=== PATIENT | female | born 1955 | race Caucasian/White ===

== ENCOUNTER 2024-08-02 08:10 | Day surgery (SDC) | payer MEDICARE, OTHER ==
[~2024-08-02] VITALS: Ht 162.6 cm; Wt 64.5 kg
[~2024-08-02 08:10] MED LIST: AMLO5TAB66 PO; CALC-462 PO; SODIUM CHLORIDE 0.9% 1,000 ML ONE
[2024-08-02] MEDS: SODIUM CHLORIDE 0.9% 1,000 ML IV ONE (08:56)
[2024-08-02] MEDS ORDERED: OXYGEN THERAPY IH SCH ×2 (09:30→20:00)
[2024-08-02] MEDS ORDERED: LIDOCAINE/PF 2% 5 ML SYRINGE IVP ONE (12:00)
[2024-08-02] MEDS ORDERED: GLYCOPYRROLATE 0.2 MG/ML VIAL IM ONE (12:00)
[2024-08-02] MEDS ORDERED: PROPOFOL 1% 20 ML VIAL IVP ONE (12:00)
== END 2024-08-02 11:05 | disposition home or self-care (01) ==
LOC: SURGERY 08:10
PROVIDERS: ATTEND Specialist
DX: K31.1 Adult hypertrophic pyloric stenosis (principal); K31.A0 Gastric intestinal metaplasia, unspecified; K29.40 Chronic atrophic gastritis without bleeding; I10 Essential (primary) hypertension; Z98.51 Tubal ligation status
CPT/HCPCS: 43239; 88305; 88312; 88313; J2704; J3490 ×2; J7030